=== PATIENT | female | born 1960 ===

== ENCOUNTER 2017-05-06 15:00 | Inpatient (IN) | payer OTHER ==
[2017-05-06 15:00] VITALS: BMI 24.4
[2017-05-06] MEDS ORDERED: Sodium Chloride 0.9% 1,000 ML IV STA (15:42)
--- NOTE | 2017-05-06 16:01 | ED PDOC ---
HPI: Abdomen Time Seen by Provider: 05/06/17 15:36 Chief Complaint (Nursing): Abdominal Pain Chief Complaint (Provider): Abdominal Pain History Per: Patient History/Exam Limitations: no limitations Onset/Duration Of Symptoms: Days (x 2) Additional Complaint(s): Ingrid is a 56 year old female, with a past medical history of end-stage renal disease, who presents to the emergency department with abdominal pain associated with pain and nausea for the past 2 days. Patient states she was unable to go to dialysis today, and states her dialysis was on Thursday. Denies fever and diarrhea. PMD: Ted Milner Past Medical History Reviewed: Historical Data, Nursing Documentation, Vital Signs Vital Signs: Last Vital Signs Temp 98.0 F 05/06/17 15:12 Pulse 107 H 05/06/17 15:12 Resp 16 05/06/17 15:12 BP 144/86 05/06/17 15:12 Pulse Ox 98 05/06/17 16:05 - Medical History PMH: HTN, Hypercholesterolemia, Hypothyroidism, Chronic Kidney Disease - Family History Family History: States: Unknown Family Hx - Home Medications Home Medications: Ambulatory Orders Medication Instructions Recorded Famotidine [Pepcid] 1 tab PO DAILY 04/02/17 Levothyroxine [Synthroid] 50 mcg PO DAILY 04/02/17 Simvastatin [Zocor] 20 mg PO DAILY 04/02/17 B Complex W-C No.20/Folic Acid 1 cap PO DAILY 05/06/17 [Triphrocaps Softgel] Cinacalcet [Sensipar] 30 mg PO DAILY 05/06/17 Fenofibrate,Micronized 134 mg PO DAILY 05/06/17 [Fenofibrate] Metoprolol Succinate [Toprol XL] 25 mg PO DAILY 05/06/17 Sevelamer Carbonate [Renvela] 800 mg PO TID 05/06/17 - Allergies Allergies/Adverse Reactions: Allergies Allergy/AdvReac Type Severity Reaction Status Date / Time latex Allergy ITCHING Verified 05/06/17 15:10 Review of Systems ROS Statement: Except As Marked, All Systems Reviewed And Found Negative Constitutional: Negative for: Fever Gastrointestinal: Positive for: Nausea, Abdominal Pain. Negative for: Diarrhea Physical Exam - Reviewed Nursing Documentation Reviewed: Yes Vital Signs Reviewed: Yes - Physical Exam Cardiovascular/Chest: Positive for: Regular Rate, Rhythm Respiratory: Positive for: Normal Breath Sounds. Negative for: Respiratory Distress Gastrointestinal/Abdominal: Positive for: Other (Mild Epigastric Tenderness) Extremity: Negative for: Tenderness, Swelling - Laboratory Results Result Diagrams: 05/06/17 15:59 05/06/17 15:59 - ECG O2 Sat by Pulse Oximetry: 98 (RA) Pulse Ox Interpretation: Normal Medical Decision Making Medical Decision Making: Time: 15:42 Plan - EKG - CMP - CBC - Sodium Chloride 0.9% 1,000 ml IV 100 mls/hr - Pepcid 20 mg IVP STAT - Zofran Inj Scribe Attestation: Documented by Bolivar Greene, acting as a scribe for Talon Blandon MD Provider Scribe Attestation: All medical record entries made by the Scribe were at my direction and personally dictated by me. I have reviewed the chart and agree that the record accurately reflects my personal performance of the history, physical exam, medical decision making, and the department course for this patient. I have also personally directed, reviewed, and agree with the discharge instructions and disposition. Disposition - Clinical Impression Clinical Impression: ESRD (end stage renal disease) on dialysis, Gastroenteritis, Dehydration - Patient ED Disposition Is Patient to be Admitted: Yes - Disposition Disposition Time: 17:33 Condition: FAIR Forms: fishfishme (Lao) - Pt Status Changed To: Hospital Disposition Of: Observation - POA Present On Arrival: None
[2017-05-06 16:02] LABS: BASO # 0.1 K/uL (0.0-0.2); BASO % 0.6 % (0.0-2.0); EOS # 0.1 K/uL (0.0-0.7); EOS % 1.3 % (0.0-4.0); HEMATOCRIT 33.6 % (34.0-47.0); LYMPH # 0.6 K/uL (1.0-4.3); LYMPH % 6.3 % (20.0-40.0); MEAN CELL VOLUME 92.4 fl (81.0-99.0); MEAN CORPUSCULAR HEMOGLOBIN 30.3 pg (27.0-31.0); MEAN CORPUSCULAR HGB CONC 32.8 g/dL (33.0-37.0); MONO # 0.3 K/uL (0.0-0.8); MONO % 3.6 % (0.0-10.0); NEUT # 7.8 K/uL (1.8-7.0); NEUT % 88.2 % (50.0-75.0); NRBC % 0.1 % (0.0-0.0); PLATELET COUNT 323 K/uL (130-400); WHITE BLOOD COUNT 8.9 K/uL (4.8-10.8)
[2017-05-06 16:47] LABS: ALB/GLOB RATIO 1.2 (1.0-2.1); BILIRUBIN,TOTAL 1.4 mg/dl (0.2-1.3); CALCIUM 9.9 mg/dL (8.4-10.2); TOTAL PROTEIN 9.6 G/DL (6.3-8.2)
[2017-05-06 17:06] LABS: POTASSIUM 6.2 MMOL/L (3.6-5.0)
[2017-05-06 17:34] LABS: EOSINOPHIL 1 % (0-7); NEUTROPHIL 82 % (42-75); TOTAL CELLS COUNTED 100
[2017-05-06] MEDS ORDERED: Sodium Chloride 0.9% 1,000 ML IV SCH (22:15)
[2017-05-07 05:39] LABS: HEMATOCRIT 27.9 % (34.0-47.0); MEAN CELL VOLUME 92.6 fl (81.0-99.0); MEAN CORPUSCULAR HEMOGLOBIN 29.9 pg (27.0-31.0); MEAN CORPUSCULAR HGB CONC 32.3 g/dL (33.0-37.0); RED CELL DISTRIBUTION WIDTH 16.5 % (11.5-14.5); WHITE BLOOD COUNT 5.5 K/uL (4.8-10.8)
[2017-05-07] MEDS: Levothyroxine 50 MCG TAB PO SCH (06:02)
[2017-05-07 06:14] LABS: ALB/GLOB RATIO 1.2 (1.0-2.1); BILIRUBIN,TOTAL 0.4 mg/dl (0.2-1.3); CALCIUM 9.5 mg/dL (8.4-10.2); POTASSIUM 4.7 MMOL/L (3.6-5.0); TOTAL PROTEIN 7.1 G/DL (6.3-8.2)
[2017-05-07] MEDS ORDERED: Epoetin Alfa 4000 UNIT/ML Inj IV SCH (09:00)
--- NOTE | 2017-05-07 09:10 | CP.PCM.CON ---
History of Present Illness - History of Present Illness History of Present Illness: Patient is a 56 years of age female known to me with end stage renal disease on maintenance hemodialysis 3 times a week Thursday. She presented to the emergency room complaining of diarrhea and some abdominal pain nausea not sure if she vomited. And she did not go for dialysis yesterday. Past medical history related to that end stage renal disease on dialysis and #2 hypertension #3 patient has history of cardiac arrhythmia and she is taking metoprolol. Social history noncontributory Review of system as noted below Review of Systems - Constitutional Constitutional: Malaise, Weakness. absent: Chills - EENT Eyes: As Per HPI - Cardiovascular Cardiovascular: absent: Acrocyanosis, Chest Pain, Dyspnea, Edema, Leg Edema, Orthopnea, Pedal Edema - Respiratory Respiratory: absent: Cough, Hemoptysis, Chest Congestion - Gastrointestinal Gastrointestinal: Abdominal Pain, Diarrhea, Nausea. absent: Coffee Ground Emesis - Genitourinary Genitourinary: absent: Nocturia - Musculoskeletal Musculoskeletal: absent: Arthralgias, Back Pain, Numbness - Integumentary Integumentary: absent: Acne, Swelling - Neurological Neurological: absent: Abnormal Gait, Confusion, Dizziness, Focal Weakness, Headaches - Endocrine Endocrine: absent: Polyphagia, Polyuria - Hematologic/Lymphatic Hematologic: absent: Easy Bleeding Past Patient History - Past Medical History & Family History Past Medical History?: Yes - Past Social History Smoking Status: Never Smoked - CARDIAC Hx Cardiac Disorders: Yes Hx Hypercholesterolemia: Yes Hx Hypertension: Yes - PULMONARY Hx Respiratory Disorders: No - NEUROLOGICAL Hx Neurological Disorder: No - HEENT Hx HEENT Problems: No - RENAL Hx Chronic Kidney Disease: Yes Hx Dialysis: Yes Date of Last Dialysis Treatment: 05/04/17 - ENDOCRINE/METABOLIC Hx Endocrine Disorders: Yes Hx Hypothyroidism: Yes - HEMATOLOGICAL/ONCOLOGICAL Hx Blood Disorders: No Hx AIDS: No Hx Human Immunodeficiency Virus (HIV): No - INTEGUMENTARY Hx Dermatological Problems: No - MUSCULOSKELETAL/RHEUMATOLOGICAL Hx Musculoskeletal Disorders: No Hx Falls: No - GASTROINTESTINAL Hx Gastrointestinal Disorders: No - GENITOURINARY/GYNECOLOGICAL Hx Genitourinary Disorders: No - PSYCHIATRIC Hx Psychophysiologic Disorder: No Hx Substance Use: No - SURGICAL HISTORY Hx Surgeries: Yes Hx Arteriovenous Shunt: Yes (FISTULA) - ANESTHESIA Hx Anesthesia: Yes Hx Anesthesia Reactions: No Hx Malignant Hyperthermia: No Meds Allergies/Adverse Reactions: Allergies Allergy/AdvReac Type Severity Reaction Status Date / Time latex Allergy ITCHING Verified 05/06/17 15:10 - Medications Medications: Current Medications Acetaminophen (Tylenol 325mg Tab) 650 mg PO Q4 PRN PRN Reason: Pain, moderate (4-7) Last Admin: 05/06/17 21:58 Dose: 650 mg Atorvastatin Calcium (Lipitor) 10 mg PO DAILY [facility] Cinacalcet (Sensipar) 30 mg PO DAILY [facility] Famotidine (Pepcid) 20 mg PO DAILY [facility] Fenofibrate (Tricor) 145 mg PO DAILY [facility] Sodium Chloride (Sodium Chloride 0.9%) 1,000 mls @ 40 mls/hr IV .Q24H [facility] Stop: 05/07/17 22:10 Last Admin: 05/07/17 02:26 Dose: 40 mls/hr Levothyroxine Sodium (Synthroid) 50 mcg PO DAILY@0630 [facility] Last Admin: 05/07/17 06:02 Dose: 50 mcg Metoprolol Succinate (Toprol Xl) 25 mg PO DAILY [facility] Sevelamer HCl (Renagel) 800 mg PO TID [facility] Vitamin B Complex/Vit C/Folic Acid (Nephro-Dayan) 1 tab PO DAILY [facility] Physical Exam - Constitutional Appears: No Acute Distress - Eye Exam Eye Exam: Normal appearance - ENT Exam ENT Exam: Mucous Membranes Moist - Neck Exam Neck exam: Negative for: Lymphadenopathy - Respiratory Exam Respiratory Exam: Clear to Auscultation Bilateral, NORMAL BREATHING PATTERN. absent: Chest Wall Tenderness - Cardiovascular Exam Cardiovascular Exam: absent: Gallop, JVD, Rubs - GI/Abdominal Exam GI & Abdominal Exam: Normal Bowel Sounds - Extremities Exam Extremities exam: Negative for: calf tenderness - Back Exam Back exam: absent: CVA tenderness (L), CVA tenderness (R) - Neurological Exam Neurological exam: Alert Results - Vital Signs Recent Vital Signs: Last Vital Signs Temp 97.9 F 05/07/17 08:00 Pulse 66 05/07/17 08:00 Resp 20 05/07/17 08:00 BP 119/72 05/07/17 08:00 Pulse Ox 97 05/07/17 08:00 - Labs Result Diagrams: 05/07/17 05:26 05/07/17 05:26 Labs: Laboratory Results - last 24 hr 05/06/17 05/06/1717 15:59 15:59 17:20 WBC 8.9 RBC 3.64 L Hgb 11.0 L Hct 33.6 L MCV 92.4 MCH 30.3 MCHC 32.8 L RDW 16.0 H Plt Count 323 MPV 7.0 L Neut % (Auto) 88.2 H Lymph % (Auto) 6.3 L [place] % (Auto) 3.6 Eos % (Auto) 1.3 Baso % (Auto) 0.6 Neut # 7.8 H Lymph # 0.6 L [place] # 0.3 Eos # 0.1 Baso # 0.1 Neutrophils % (Manual) 82 H Band Neutrophils % 4 H Lymphocytes % (Manual) 9 L Monocytes % (Manual) 4 Eosinophils % (Manual) 1 Platelet Estimate Normal Anisocytosis (manual) Slight Macrocytosis (manual) Slight Sodium 138 Potassium 6.2 H* 5.3 H Chloride 102 Carbon Dioxide 19 L Anion Gap 23 H BUN 41 H Creatinine 7.5 H* Est GFR ( Amer) 7 Est GFR (Non-Af Amer) 6 Random Glucose 88 Calcium 9.9 Total Bilirubin 1.4 H AST 51 H ALT 23 Alkaline Phosphatase 68 Total Protein 9.6 H Albumin 5.2 H Globulin 4.4 H Albumin/Globulin Ratio 1.2 05/07/17 05/07/17 05:26 05:26 WBC 5.5 RBC 3.01 L Hgb 9.0 L D Hct 27.9 L MCV 92.6 MCH 29.9 MCHC 32.3 L RDW 16.5 H Plt Count 254 MPV Neut % (Auto) Lymph % (Auto) [place] % (Auto) Eos % (Auto) Baso % (Auto) Neut # Lymph # Floyd # Eos # Baso # Neutrophils % (Manual) Band Neutrophils % Lymphocytes % (Manual) Monocytes % (Manual) Eosinophils % (Manual) Platelet Estimate Anisocytosis (manual) Macrocytosis (manual) Sodium 141 Potassium 4.7 Chloride 106 Carbon Dioxide 22 Anion Gap 18 BUN 43 H Creatinine 8.2 H* Est GFR ( Amer) 6 Est GFR (Non-Af Amer) 5 Random Glucose 79 Calcium 9.5 Total Bilirubin 0.4 AST 31 ALT 36 Alkaline Phosphatase 48 Total Protein 7.1 Albumin 3.9 Globulin 3.2 Albumin/Globulin Ratio 1.2 Assessment & Plan (1) ESRD (end stage renal disease) on dialysis Assessment and Plan: #1 Patient with end stage renal disease on maintenance hemodialysis. Patient scheduled for dialysis shortly. #2 Patient admitted to his diarrhea and abdominal pain and nausea. Rule out gastroenteritis. Patient may need Cipro empirically. #3 patient admitted with hyperkalemia patient was given medication Kayexalate to lower the potassium and she is scheduled for dialysis shortly. #4 anemia patient is to be given EPO on hemodialysis. #5 patient has hyperphosphatemia and secondary hyperparathyroidism as outpatient. Continue phosphorous binder and Sensipar #6 discussed with her primary care physician #7 patient appeared to be slightly hypovolemic she is receiving intravenous normal saline 40 mL/h to continue until this afternoon when she completed dialysis Status: Acute (2) Gastroenteritis Status: Acute
[2017-05-07] MEDS: Multivitamin Vitamin B Complex (Nephro-Vite) Tab PO SCH (09:52)
[2017-05-07 09:53] LABS: AMYLASE 88 U/L (30-110); LIPASE 125 U/L (23-300)
[2017-05-07] MEDS: Metoprolol Succinate 25 mg XL Tab PO SCH (09:53)
[2017-05-07] MEDS: Ciprofloxacin 200mg/100ml D5W 100 ML IVPB SCH ×2 (11:01→21:46)
--- NOTE | 2017-05-07 15:46 | HP ---
HISTORY OF PRESENT ILLNESS: Ms. Snow is a 56-year-old female who was admitted via the emergency room following abdominal pain and nausea and diarrhea for the past several days. She indicates that she had missed her dialysis today because of feeling weak and feeling tired. PAST MEDICAL HISTORY: She has a history of end-stage renal disease, hypertension, hyperlipidemia, hypothyroidism. She is on hemodialysis. FAMILY HISTORY: Non-revealing. SOCIAL HISTORY: She does not smoke or drink. REVIEW OF SYSTEMS: Essentially unremarkable. PHYSICAL EXAMINATION: GENERAL: The patient is alert, oriented, appears to be much more comfortable since admission and hydration. VITAL SIGNS: Blood pressure 144/86, pulse of 107, respirations 16, she is afebrile, O2 sat 98% on room air. SKIN: Shows fair turgor. HEENT: Pupils equal, reactive to light and accommodation. Mouth shows fair hygiene. NECK: JVP flat. LUNGS: Clear. HEART: Regular. No murmurs or gallop. BREASTS: Normal. ABDOMEN: Soft, nontender. No organomegaly. EXTREMITIES: Show no edema or cyanosis. There is dialysis shunt over the right upper extremity. CENTRAL NERVOUS SYSTEM: Grossly intact. LABORATORY DATA: Remarkable for sodium of 141, potassium 4.7 down from 6.2, BUN of 43, creatinine 8.2, calcium 9.5. AST 31, ALT 23. WBC 5.5, hemoglobin 9.0, platelet count of 254,000. Amylase and lipase pending. EKG pending. Flat plate of abdomen pending. IMPRESSION: [id number] renal failure, dehydration secondary to diarrhea and nausea, history of end-stage renal disease, history of hypertension, history of hyperlipidemia. PLAN: Continue intravenous hydration, hemodialysis today, IV Cipro renal dose for gastroenteritis. We will obtain serum amylase and lipase. Possible discharge in a.m. if clinically stable and cleared by Nephrology. Nazario Vazquez MD
[2017-05-08 00:04] VITALS: RESP 18
[2017-05-08 05:06] VITALS: O2SAT 97
[2017-05-08 05:48] LABS: HEMATOCRIT 29.7 % (34.0-47.0); MEAN CELL VOLUME 91.6 fl (81.0-99.0); MEAN CORPUSCULAR HEMOGLOBIN 30.1 pg (27.0-31.0); MEAN CORPUSCULAR HGB CONC 32.9 g/dL (33.0-37.0); RED CELL DISTRIBUTION WIDTH 16.3 % (11.5-14.5); WHITE BLOOD COUNT 5.7 K/uL (4.8-10.8)
[2017-05-08] MEDS: Levothyroxine 50 MCG TAB PO SCH (06:56)
[2017-05-08 06:59] LABS: CALCIUM 8.9 mg/dL (8.4-10.2); POTASSIUM 4.1 MMOL/L (3.6-5.0)
--- NOTE | 2017-05-08 07:40 | RAD ---
HISTORY: abdominal pain COMPARISON: No prior. FINDINGS: BOWEL: Respiratory motion degrades sequela this examination in the upper abdomen. A nonobstructive bowel gas pattern is appreciated. No prominent free intrarenal gas is evident and there is no suspicious intra-abdominal calcification identified either. BONES: Normal. OTHER FINDINGS: None. IMPRESSION: Nonobstructive bowel gas pattern as per above.
[2017-05-08] MEDS: Multivitamin Vitamin B Complex (Nephro-Vite) Tab PO SCH (09:36)
[2017-05-08] MEDS: Metoprolol Succinate 25 mg XL Tab PO SCH (09:37)
[2017-05-08] MEDS: Ciprofloxacin 200mg/100ml D5W 100 ML IVPB SCH (09:38)
--- NOTE | 2017-05-08 10:06 | CP.PCM.PN ---
Subjective - Date & Time of Evaluation Date of Evaluation: 05/08/17 Time of Evaluation: 10:03 - Subjective Subjective: Patient appears to be comfortable in no acute distress. Abdomen and pain appeared to be subsided No diarrhea No vomiting or nausea Completed hemodialysis yesterday Objective - Vital Signs/Intake and Output Vital Signs (last 24 hours): Temp Pulse Resp BP Pulse Ox 98.6 F 79 18 112/73 97 05/08/17 08:03 05/08/17 09:37 05/08/17 08:03 05/08/17 09:37 05/08/17 08:03 Intake and Output: 05/08/17 05/08/17 06:59 18:59 Intake Total 1280 Balance 1280 - Medications Medications: Current Medications Acetaminophen (Tylenol 325mg Tab) 650 mg PO Q4 PRN PRN Reason: Pain, moderate (4-7) Last Admin: 05/06/17 21:58 Dose: 650 mg Atorvastatin Calcium (Lipitor) 10 mg PO DAILY [facility] Last Admin: 05/08/17 09:36 Dose: 10 mg Cinacalcet (Sensipar) 30 mg PO DAILY [facility] Last Admin: 05/08/17 09:36 Dose: 30 mg Epoetin Allen (Procrit) 4,000 unit IV TTS [facility] Last Admin: 05/07/17 13:43 Dose: 4,000 unit Famotidine (Pepcid) 20 mg PO DAILY [facility] Last Admin: 05/08/17 09:36 Dose: 20 mg Fenofibrate (Tricor) 145 mg PO DAILY [facility] Last Admin: 05/08/17 09:37 Dose: 145 mg Ciprofloxacin (Cipro 200mg/100ml D5w) 100 mls @ 100 mls/hr IVPB Q12 [facility] Last Admin: 05/08/17 09:38 Dose: 100 mls/hr Levothyroxine Sodium (Synthroid) 50 mcg PO DAILY@0630 [facility] Last Admin: 05/08/17 06:56 Dose: 50 mcg Metoprolol Succinate (Toprol Xl) 25 mg PO DAILY [facility] Last Admin: 05/08/17 09:37 Dose: 25 mg Sevelamer HCl (Renagel) 800 mg PO TID [facility] Last Admin: 05/08/17 09:36 Dose: 800 mg Vitamin B Complex/Vit C/Folic Acid (Nephro-Dayan) 1 tab PO DAILY [facility] Last Admin: 05/08/17 09:36 Dose: 1 tab - Labs Labs: 05/08/17 04:25 05/08/17 04:25 - Constitutional Appears: No Acute Distress - ENT Exam ENT Exam: Mucous Membranes Moist - Respiratory Exam Respiratory Exam: NORMAL BREATHING PATTERN. absent: Chest Wall Tenderness, Rhonchi, Wheezes - Cardiovascular Exam Cardiovascular Exam: REGULAR RHYTHM. absent: JVD, Rubs - GI/Abdominal Exam GI & Abdominal Exam: Soft, Normal Bowel Sounds - Extremities Exam Extremities Exam: absent: Calf Tenderness - Back Exam Back Exam: absent: CVA tenderness (L), CVA tenderness (R) - Neurological Exam Neurological Exam: Alert - Psychiatric Exam Psychiatric exam: Normal Affect - Skin Skin Exam: absent: Cyanosis Assessment and Plan (1) ESRD (end stage renal disease) on dialysis Assessment & Plan: Patient with end stage renal disease is stable on dialysis. Patient is scheduled to have hemodialysis as outpatient at the facility at 2:00 PM if she is going home. Patient admitted with diarrhea and some vomiting. resolved perhaps some element of gastroenteritis. Hypertension controlled. Patient has history of hyperphosphatemia and secondary hyperparathyroidism which has been under control on dialysis as outpatient. Status: Acute (2) Gastroenteritis Status: Acute
[2017-05-08 12:10] VITALS: BP 119/71; PULSE 74; TEMP 98
--- NOTE | 2017-05-08 12:45 | CP.PCM.DIS ---
Provider - Provider Date of Admission: 05/07/17 09:17 Attending physician: Nazario Vazquez MD Time Spent in preparation of Discharge (in minutes): 30 Diagnosis - Discharge Diagnosis (1) Dehydration Status: Acute (2) ESRD (end stage renal disease) on dialysis Status: Acute (3) Gastroenteritis Status: Acute Hospital Course - Lab Results Lab Results: Most Recent Lab Values WBC 5.7 K/uL (4.8-10.8) 05/08/17 04:25 RBC 3.24 Mil/uL (3.80-5.20) L 05/08/17 04:25 Hgb 9.8 g/dL (12.0-16.0) L 05/08/17 04:25 Hct 29.7 % (34.0-47.0) L 05/08/17 04:25 MCV 91.6 fl (81.0-99.0) 05/08/17 04:25 MCH 30.1 pg (27.0-31.0) 05/08/17 04:25 MCHC 32.9 g/dL (33.0-37.0) L 05/08/17 04:25 RDW 16.3 % (11.5-14.5) H 05/08/17 04:25 Plt Count 249 K/uL (130-400) 05/08/17 04:25 MPV 7.0 fl (7.2-11.7) L 05/06/17 15:59 Neut % (Auto) 88.2 % (50.0-75.0) H 05/06/17 15:59 Lymph % (Auto) 6.3 % (20.0-40.0) L 05/06/17 15:59 [place] % (Auto) 3.6 % (0.0-10.0) 05/06/17 15:59 Eos % (Auto) 1.3 % (0.0-4.0) 05/06/17 15:59 Baso % (Auto) 0.6 % (0.0-2.0) 05/06/17 15:59 Neut # 7.8 K/uL (1.8-7.0) H 05/06/17 15:59 Lymph # 0.6 K/uL (1.0-4.3) L 05/06/17 15:59 [place] # 0.3 K/uL (0.0-0.8) 05/06/17 15:59 Eos # 0.1 K/uL (0.0-0.7) 05/06/17 15:59 Baso # 0.1 K/uL (0.0-0.2) 05/06/17 15:59 Neutrophils % (Manual) 82 % (42-75) H 05/06/17 15:59 Band Neutrophils % 4 % (0-2) H 05/06/17 15:59 Lymphocytes % (Manual) 9 % (20-50) L 05/06/17 15:59 Monocytes % (Manual) 4 % (0-10) 05/06/17 15:59 Eosinophils % (Manual) 1 % (0-7) 05/06/17 15:59 Platelet Estimate Normal (NORMAL) 05/06/17 15:59 Anisocytosis (manual) Slight 05/06/17 15:59 Macrocytosis (manual) Slight 05/06/17 15:59 Sodium 135 mmol/l (132-148) 05/08/17 04:25 Potassium 4.1 MMOL/L (3.6-5.0) 05/08/17 04:25 Chloride 96 mmol/L (98-107) L 05/08/17 04:25 Carbon Dioxide 25 mmol/L (22-30) 05/08/17 04:25 Anion Gap 18 (10-20) 05/08/17 04:25 BUN 28 mg/dl (7-17) H 05/08/17 04:25 Creatinine 5.3 mg/dl (0.7-1.2) H 05/08/17 04:25 Est GFR ( Amer) 10 05/08/17 04:25 Est GFR (Non-Af Amer) 8 05/08/17 04:25 Random Glucose 105 mg/dL (65-105) 05/08/17 04:25 Calcium 8.9 mg/dL (8.4-10.2) 05/08/17 04:25 Total Bilirubin 0.4 mg/dl (0.2-1.3) 05/07/17 05:26 AST 31 U/L (14-36) 05/07/17 05:26 ALT 36 U/L (9-52) 05/07/17 05:26 Alkaline Phosphatase 48 U/L (38-126) 05/07/17 05:26 Total Protein 7.1 G/DL (6.3-8.2) 05/07/17 05:26 Albumin 3.9 g/dL (3.5-5.0) 05/07/17 05:26 Globulin 3.2 gm/dL (2.2-3.9) 05/07/17 05:26 Albumin/Globulin Ratio 1.2 (1.0-2.1) 05/07/17 05:26 Amylase 88 U/L (30-110) 05/07/17 09:33 Lipase 125 U/L (23-300) 05/07/17 09:33 - Hospital Course Hospital Course: FEELS BETTER NO COMPLAINTS NO DIARRHEA,NAUSEA/VOMITING Discharge Exam - Head Exam Head Exam: ATRAUMATIC, NORMAL INSPECTION, NORMOCEPHALIC - Eye Exam Eye Exam: EOMI, Normal appearance, PERRL Pupil Exam: NORMAL ACCOMODATION, PERRL - GI/Abdominal Exam GI & Abdominal Exam: Normal Bowel Sounds - Rectal Exam Rectal Exam: NORMAL INSPECTION - Neurological Exam Neurological exam: Alert, CN II-XII Intact, Normal Gait, Oriented x3, Reflexes Normal - Psychiatric Exam Psychiatric exam: Normal Affect, Normal Mood - Skin Skin Exam: Dry, Intact, Normal Color, Warm Discharge Plan - Follow Up Plan Condition: FAIR Disposition: HOME/ ROUTINE Patient education suggested?: Yes Additional Instructions: DISCHARGE TODAY OUT PT HEMODIALYSIS
--- NOTE | 2017-05-08 13:42 | CP.PCM.PCO ---
Assessment/Plan - Assessment and Plan (Free Text) Assessment: Patient for discharge today, discussed with dr cobb no further diarrhea. Spoke to patients HD center, patient scheduled for HD tomorrow 230pm. Spoke to RN TOMAS at HD center. Dr Henley agrees with plan.
--- NOTE | 2017-05-08 16:02 | CARD ---
APPROVED REPORT EKG Measurement Heart [id number] <Conclusion> Normal sinus rhythm Prolonged QT Abnormal ECG
== END 2017-05-08 15:03 | disposition home or self-care (01) | DRG 683 ==
LOC: H.ER 15:00 → H.ERHOLD 17:31 → H.TEL 18:56 → OBSVTOIN 05-07 09:17
PROVIDERS: ADMIT Internal Medicine Pulmonary Disease; ATTEND Internal Medicine Pulmonary Disease
DX: N17.9 Acute kidney failure, unspecified (principal); I12.0 Hypertensive chronic kidney disease with stage 5 chronic kidney disease or end stage renal disease; E83.39 Other disorders of phosphorus metabolism; D64.9 Anemia, unspecified; N18.6 End stage renal disease; E87.5 Hyperkalemia; N25.81 Secondary hyperparathyroidism of renal origin; E03.9 Hypothyroidism, unspecified; E78.00 Pure hypercholesterolemia, unspecified; E78.5 Hyperlipidemia, unspecified; E86.0 Dehydration; Z99.2 Dependence on renal dialysis; K52.9 Noninfective gastroenteritis and colitis, unspecified; E86.1 Hypovolemia; Z91.040 Latex allergy status